=== PATIENT | female | born 1995 | race Hispanic/Latino ===

== ENCOUNTER 2018-08-02 23:01 | Emergency (ER) | payer BC ==
[2018-08-03 00:12] LABS: Urine Blood NEGATIVE (NEG); Urine Glucose NEGATIVE (NEG); Urine Protein NEGATIVE (NEG)
[2018-08-03] MEDS ORDERED: DICYCLOMINE HCL 10 MG CAP ONE (00:41)
[2018-08-03 02:01] LABS: Absolute Lymphocytes (CBC) 1.6 K/uL (0.7-4.9); Absolute Monocytes 0.5 K/uL (0.1-1.3); Absolute Neutrophil 11.6 K/uL (1.8-8.0); Basophils % 0.4 % (0-1.3); Eosinophils % 0.6 % (0-4.4); Hematocrit 42.2 % (36.0-45.0); Lymphocytes % 11.4 % (15.3-44.8); Monocytes % 3.9 % (3.3-12.3); RBC Red Blood Cell Count 4.93 M/uL (3.86-4.86)
[2018-08-03] MEDS ORDERED: MEPERIDINE HCL 25 MG/0.5 ML ONE (02:04)
[2018-08-03] MEDS ORDERED: ONDANSETRON 4 MG/2 ML VIAL ONE (02:04)
[2018-08-03 02:13] LABS: ALT/SGPT 25 U/L (12-78); AST/SGOT 15 U/L (15-37); Albumin 4.2 g/dL (3.4-5.0); Alkaline Phosphatase 81 U/L (45-117); BUN Blood Urea Nitrogen 8 mg/dL (7-18); Bicarbonate 25 mmol/L (21-32); Bilirubin Direct 0.1 mg/dL (0-0.2); Bilirubin Total 0.5 mg/dL (0.2-1.0); Glucose Level 106 mg/dL (74-106); Lipase 111 U/L (73-393); Protein, Total 8.1 g/dL (6.4-8.2); Sodium Level 138 mmol/L (136-145)
--- NOTE | 2018-08-03 04:21 | EDPHYS ---
Physician Documentation [facility] Name: Rommel Soler Age: 22 yrs Sex: Female : 1995 Arrival Date: 08/02/2018 Time: 23:17 Bed 16 Private MD: ED Physician Mata Miranda HPI: 08/03 01:50 This 22 yrs old Female presents to ER via Ambulatory with complaints of jr8 Abdominal Pain. 01:50 The patient presents with abdominal pain that is diffuse. Onset: The symptoms/episode jr8 began/occurred gradually, 2 day(s) ago. The symptoms do not radiate. Associated signs and symptoms: none. The symptoms are described as crampy, dull. Modifying factors: The symptoms are alleviated by nothing, the symptoms are aggravated by food. Severity of pain: At its worst the pain was moderate in the emergency department the pain is unchanged. The patient has not experienced similar symptoms in the past. The patient has been recently seen by a physician:. 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 Went from regular stools to more constipated movements. Straining more. Denies dietary changes or stressors. Stated that for the past two days has had generalized abdominal pain. Saw physician this AM and told her it is stress. Came to ED tonight for continued pain . 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 - Social history:: Smoking status: Patient/guardian denies using tobacco. - Ebola Screening: : Patient negative for fever greater than or equal to 101.5 degrees Fahrenheit, and additional compatible Ebola Virus Disease symptoms Patient denies exposure to infectious person Patient denies travel to an Ebola-affected area in the 21 days before illness onset No symptoms or risks identified at this time. ROS: 08/03 01:50 Eyes: Negative for injury, pain, redness, and discharge, ENT: Negative for injury, jr8 pain, and discharge, Neck: Negative for injury, pain, and swelling, Cardiovascular: Negative for chest pain, palpitations, and edema, Respiratory: Negative for shortness of breath, cough, wheezing, and pleuritic chest pain, Back: Negative for injury and pain, MS/Extremity: Negative for injury and deformity, Skin: Negative for injury, rash, and discoloration, Neuro: Negative for headache, weakness, numbness, tingling, and seizure. Abdomen/GI: Positive for abdominal pain, constipation, Negative for nausea, vomiting, and diarrhea, abdominal distension, anorexia, dysphagia, hematemesis, black/tarry stool, rectal pain, rectal bleeding, bowel incontinence, flatulence. Exam: 01:50 Eyes: Pupils equal round and reactive to light, extra-ocular motions intact. Lids and jr8 lashes normal. Conjunctiva and sclera are non-icteric and not injected. Cornea within normal limits. Periorbital areas with no swelling, redness, or edema. ENT: Nares patent. No nasal discharge, no septal abnormalities noted. Tympanic membranes are normal and external auditory canals are clear. Oropharynx with no redness, swelling, or masses, exudates, or evidence of obstruction, uvula midline. Mucous membranes moist. Neck: Trachea midline, no thyromegaly or masses palpated, and no cervical lymphadenopathy. Supple, full range of motion without nuchal rigidity, or vertebral point tenderness. No Meningismus. Cardiovascular: Regular rate and rhythm with a normal S1 and S2. No gallops, murmurs, or rubs. Normal PMI, no JVD. No pulse deficits. Respiratory: Lungs have equal breath sounds bilaterally, clear to auscultation and percussion. No rales, rhonchi or wheezes noted. No increased work of breathing, no retractions or nasal flaring. Back: No spinal tenderness. No costovertebral tenderness. Full range of motion. Skin: Warm, dry with normal turgor. Normal color with no rashes, no lesions, and no evidence of cellulitis. MS/ Extremity: Pulses equal, no cyanosis. Neurovascular intact. Full, normal range of motion. Neuro: Awake and alert, GCS 15, oriented to person, place, time, and situation. Cranial nerves II-XII grossly intact. Motor strength 5/5 in all extremities. Sensory grossly intact. Cerebellar exam normal. Normal gait. 01:50 Abdomen/GI: Inspection: abdomen appears normal, Bowel sounds: active, all quadrants, Palpation: soft, in all quadrants, mild abdominal tenderness, in the abdomen diffusely, mass, is not appreciated, rebound tenderness, is not appreciated, voluntary guarding, is not appreciated, involuntary guarding, is not appreciated, no appreciated organomegaly, Indicators: McBurney's point is not tender, Merchant's sign is negative, Rovsing's sign is negative, Liver: tenderness, is not appreciated. Vital Signs: 08/02 23:29 BP 152 / 87; Pulse 90; Resp 18; Temp 98.1; Pulse Ox 100% on R/A; Weight 69.85 kg; ed1 Height 5 ft. 6 in. (167.64 cm); Pain 12/04; 08/03 00:30 BP 149 / 93; Pulse 83; Resp 16; Temp 98.1; Pulse Ox 100% on R/A; ak1 01:20 BP 140 / 85; Pulse 71; Resp 16; Temp 98.1; Pulse Ox 100% on R/A; ak1 03:09 Pulse 75; Resp 14; Temp 98.3; Pulse Ox 100% on R/A; ak1 04:14 BP 138 / 76; Pulse 85; Resp 17 S; Pulse Ox 100% on R/A; cc3 08/02 23:29 Body Mass Index 24.86 (69.85 kg, 167.64 cm) ed1 MDM: 00:11 Patient medically screened. [facility] 08/02 23:43 Order name: Urine Dipstick--Ancillary (enter results); Complete Time: 00:31 08/02 23:43 Order name: Urine --Ancillary (enter results); Complete Time: 00:31 08/03 01:06 Order name: Basic Metabolic Panel; Complete Time: 02:14 [facility] 08/03 01:06 Order name: CBC with Diff; Complete Time: 02:14 [facility] 08/03 01:06 Order name: Creatinine for Radiology; Complete Time: 02:14 08/03 01:06 Order name: Hepatic Function; Complete Time: 02:14 [facility] 08/03 01:06 Order name: Lipase; Complete Time: 02:14 [facility] 08/03 01:06 Order name: IV Saline Lock; Complete Time: 01:55 [facility] 08/03 01:26 Order name: Abdomen Single View [facility] 08/03 02:18 Order name: CT Abd/Pelvis - W/Contrast jr8 08/03 01:06 Order name: Labs collected and sent; Complete Time: : jr8 Administered Medications: 00:30 Drug: Bentyl 20 mg Route: PO; ak1 01:10 Follow up: Response: No adverse reaction; Pain is unchanged, physician notified ak1 01:55 Drug: Demerol 25 mg Route: IVP; Site: left antecubital; ak1 02:30 Follow up: Response: No adverse reaction; Pain is decreased ak1 01:55 Drug: Zofran 4 mg Route: IVP; Site: left antecubital; ak1 02:30 Follow up: Response: No adverse reaction ak1 Disposition: 02:34 Co-signature as Attending Physician, Mata Miranda MD I agree with the assessment and [facility] plan of care. Disposition: 08/03/18 04:20 Discharged to Home. Impression: Abdominal tenderness, Constipation, Elevated white blood cell count. - Condition is Stable. - Discharge Instructions: Abdominal Pain, Adult, Constipation, Adult, Constipation, Adult, [id number], Abdominal Pain, Adult, [id number]. - Prescriptions for Bentyl 20 mg Oral Tablet - take 1 tablet by ORAL route every 6 hours As needed; 20 tablet. Colace 100 mg Oral Tablet - take 1 tablet by ORAL route every 12 hours; 14 tablet. - Medication Reconciliation Form, Thank You Letter, Antibiotic Education, Prescription Opioid Use form. - Follow up: Private Physician; When: 2 - 3 days; Reason: Recheck today's complaints, Continuance of care, Re-evaluation by your physician. Follow up: Saeed Smart MD; When: 2 - 3 days; Reason: Recheck today's complaints, Continuance of care, Re-evaluation by your physician. - Problem is new. - Symptoms have improved. Signatures: Dispatcher [employer] Mata Helton MD MD cha Riggs, Erika, RN RN ed1 Baljinder Feliz PA PA jr8 Alivia Mak, RN RN ak1 Corrections: (The following items were deleted from the chart) 01:26 01:08 Abdomen Acute Series+[id number].[id number] ordered. EDPR EDPR 04:21 04:20 08/03/2018 04:20 Discharged to Home. Impression: Abdominal tenderness. Condition sherrie is Stable. Forms are Medication Reconciliation Form, Thank You Letter, Antibiotic Education, Prescription Opioid Use. Follow up: Private Physician; When: 2 - 3 days; Reason: Recheck today's complaints, Continuance of care, Re-evaluation by your physician. Follow up: Saeed Smart; When: 2 - 3 days; Reason: Recheck today's complaints, Continuance of care, Re-evaluation by your physician. Problem is new. Symptoms have improved. sherrie 04:42 04:21 08/03/2018 04:20 Discharged to Home. Impression: Abdominal tenderness; ak1 Constipation; Elevated white blood cell count. Condition is Stable. Forms are Medication Reconciliation Form, Thank You Letter, Antibiotic Education, Prescription Opioid Use. Follow up: Private Physician; When: 2 - 3 days; Reason: Recheck today's complaints, Continuance of care, Re-evaluation by your physician. Follow up: Saeed Smart; When: 2 - 3 days; Reason: Recheck today's complaints, Continuance of care, Re-evaluation by your physician. Problem is new. Symptoms have improved. sherrie
--- NOTE | 2018-08-03 04:21 | ER ---
Nurse's Notes [facility] Name: Rommel Soler Age: 22 yrs Sex: Female : 1995 Arrival Date: 08/02/2018 Time: 23:17 Bed 16 Private MD: Diagnosis: Abdominal tenderness;Constipation;Elevated white blood cell count Presentation: 08/02 23:28 Presenting complaint: Patient states: My stomach hurts and it feels like I need to poop ed1 and I do a little but it still feels like there is stuff in there. Transition of care: patient was not received from another setting of care. Onset of symptoms was July 31, 2018. Risk Assessment: Do you want to hurt yourself or someone else? Patient reports no desire to harm self or others. Initial Sepsis Screen: Does the patient meet any 2 criteria? No. Patient's initial sepsis screen is negative. Does the patient have a suspected source of infection? No. Patient's initial sepsis screen is negative. Care prior to arrival: None. 23:28 Method Of Arrival: Ambulatory ed1 23:28 Acuity: KISHAN 3 ed1 Triage Assessment: 23:29 General: Appears uncomfortable, Behavior is calm, cooperative. Pain: Complains of pain ed1 in right lower quadrant and left lower quadrant Pain currently is 9 out of 10 on a pain scale. GI: Reports nausea. 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 - Social history:: Smoking status: Patient/guardian denies using tobacco. - Ebola Screening: : Patient negative for fever greater than or equal to 101.5 degrees Fahrenheit, and additional compatible Ebola Virus Disease symptoms Patient denies exposure to infectious person Patient denies travel to an Ebola-affected area in the 21 days before illness onset No symptoms or risks identified at this time. Screenin/10 00:32 Abuse screen: Denies threats or abuse. Denies injuries from another. Nutritional ak1 screening: No deficits noted. Tuberculosis screening: No symptoms or risk factors identified. Fall Risk None identified. Assessment: 00:30 General: Appears in no apparent distress. Behavior is calm, cooperative, anxious. Pain: ak1 Complains of pain in abdomen. Neuro: No deficits noted. Cardiovascular: No deficits noted. Respiratory: No deficits noted. GI: Abdomen is flat, non-distended, Bowel sounds present X 4 quads. Abd is soft and non tender X 4 quads. Reports lower abdominal pain, upper abdominal pain, cramping, pt stated she is having increased "gas" pt stated the generalized abd pain started Monday. pt stated she is having BM daily "but more should come out" pt seen at [facility] in the clinic dx stress related abd pain. pt stated they did not give her anything for pain. pt denies N/V/D. : No signs and/or symptoms were reported regarding the genitourinary system. EENT: No signs and/or symptoms were reported regarding the EENT system. Derm: No signs and/or symptoms reported regarding the dermatologic system. Musculoskeletal: No signs and/or symptoms reported regarding the musculoskeletal system. 00:59 Reassessment: Patient appears in no apparent distress at this time. No changes from ak1 previously documented assessment. pt in restroom at this time. pt with steady gait. 02:00 Reassessment: Patient appears in no apparent distress at this time. No changes from ak1 previously documented assessment. Patient and/or family updated on plan of care and expected duration. Pain level reassessed. Patient is alert, oriented x 3, equal unlabored respirations, skin warm/dry/pink. 03:15 Reassessment: Patient appears in no apparent distress at this time. No changes from ak1 previously documented assessment. Patient and/or family updated on plan of care and expected duration. Pain level reassessed. Patient is alert, oriented x 3, equal unlabored respirations, skin warm/dry/pink. 04:41 Reassessment: Patient appears in no apparent distress at this time. No changes from ak1 previously documented assessment. Patient and/or family updated on plan of care and expected duration. Pain level reassessed. Patient is alert, oriented x 3, equal unlabored respirations, skin warm/dry/pink. pt with steady gait at discharge. Patient denies pain at this time. Patient states feeling better. Patient states symptoms have improved. Vital Signs: 08/02 23:29 BP 152 / 87; Pulse 90; Resp 18; Temp 98.1; Pulse Ox 100% on R/A; Weight 69.85 kg; ed1 Height 5 ft. 6 in. (167.64 cm); Pain 12/04; 08/03 00:30 BP 149 / 93; Pulse 83; Resp 16; Temp 98.1; Pulse Ox 100% on R/A; ak1 01:20 BP 140 / 85; Pulse 71; Resp 16; Temp 98.1; Pulse Ox 100% on R/A; ak1 03:09 Pulse 75; Resp 14; Temp 98.3; Pulse Ox 100% on R/A; ak1 04:14 BP 138 / 76; Pulse 85; Resp 17 S; Pulse Ox 100% on R/A; cc3 08/02 23:29 Body Mass Index 24.86 (69.85 kg, 167.64 cm) ed1 ED Course: 08/02 23:17 Patient arrived in ED. es 23:28 Triage completed. ed1 23:29 Arm band placed on right wrist. ed1 08/03 00:11 Baljinder Feliz PA is PHCP. jr8 00:11 Mata Miranda MD is Attending Physician. jr8 00:12 Alivia Mak, TANYA is Primary Nurse. ak1 00:32 Patient has correct armband on for positive identification. Bed in low position. Call ak1 light in reach. Side rails up X 1. Adult w/ patient. Pulse ox on. NIBP on. Door closed. Lights dimmed. Warm blanket given. 00:56 No provider procedures requiring assistance completed. ak1 01:25 X-ray completed. Portable x-ray completed in exam room. Patient tolerated procedure kw well. 01:27 Abdomen Single View In Process Unspecified. EDMS 01:55 Inserted saline lock: 22 gauge in left antecubital area, using aseptic technique. Blood ak1 collected. 01:56 Initial lab(s) drawn, by me, sent to lab. Urine collected: clean catch specimen, clear, ak1 X-ray(s) taken. 03:07 CT Abd/Pelvis - W/Contrast In Process Unspecified. EDMS 04:19 Saeed Smart MD is Referral Physician. sherrie 04:40 IV discontinued, intact, bleeding controlled, No redness/swelling at site. Pressure ak1 dressing applied. Administered Medications: 00:30 Drug: Bentyl 20 mg Route: PO; ak1 01:10 Follow up: Response: No adverse reaction; Pain is unchanged, physician notified ak1 01:55 Drug: Demerol 25 mg Route: IVP; Site: left antecubital; ak1 02:30 Follow up: Response: No adverse reaction; Pain is decreased ak1 01:55 Drug: Zofran 4 mg Route: IVP; Site: left antecubital; ak1 02:30 Follow up: Response: No adverse reaction ak1 Outcome: 04:18 Condition: good ak1 04:20 Discharge ordered by MD. sherrie 04:40 Discharged to home ambulatory, with family. ak1 04:40 Discharge instructions given to patient, family, Instructed on discharge instructions, follow up and referral plans. no drinking with medication, no driving heavy equipment, medication usage, safe sex practices, Demonstrated understanding of instructions, follow-up care, medications, Prescriptions given X 2. 04:42 Patient left the ED. ak1 Signatures: Dispatcher [employer] EDMata Chaudhari MD MD cha Salyer, Edna es Riggs, Erika RN RN ed1 Judy Dobbins Josh, PA PA jr8 Alivia Mak RN RN ak1 Umu Belcher cc3
--- NOTE | 2018-08-03 08:35 | RAD REPORT ---
EXAM DESCRIPTION: RAD - Abdomen Single View - 08/03/2018 1:29 am CLINICAL HISTORY: Abd pain;Constipation Pain COMPARISON: No comparisons FINDINGS: The bowel gas pattern is non-obstructive. No evidence of free air or pneumatosis. No suspi cious calcifications. No significant bony findings. Moderate fecal retention in the colon. IMPRESSION: Moderate fecal retention in the colon.
--- NOTE | 2018-08-03 10:36 | RAD REPORT ---
EXAM DESCRIPTION: CT ABDOMEN PELVIS WITH IV CONTRAST COMPARISON: None CLINICAL HISTORY: Abdominal pain TECHNIQUE: Multiple helical axial images were obtained through the abdomen and pelvis using intraven ous contrast. Coronal and sagittal reformatted images were obtained. All CT scans at this facility use dose modulation, iterative reconstruction, and/or weight-based dosi ng when appropriate to reduce radiation dose to as low as reasonably achievable. FINDINGS: Lung bases: Nonspecific 3 mm nodule in the right lateral costophrenic sulcus is present. Liver: Homogenous attenuation is noted. Gallbladder/biliary: Appears unremarkable Pancreas: Unremarkable. No evidence of ductal enlargement. Spleen: Appears unremarkable. No splenomegaly. Adrenals: Unremarkable. Kidneys and ureters: No evidence of hydronephrosis. Normal enhancement. Bladder: Unremarkable. Pelvic organs: Small left ovarian corpus luteum cyst noted. Bowel: No evidence of bowel obstruction. No bowel wall thickening. Appendix appears unremarkable. Vasculature: Unremarkable. Peritoneum: No free air. There is a trace amount nonspecific free fluid in the pelvis. Lymph nodes: Unremarkable. Soft tissues: Unremarkable. Bones: Unremarkable. IMPRESSION: No evidence for an acute process within the abdomen or pelvis. Electronically signed by: Shawn Antoine MD 08/03/2018 3:18 AM CDT Due to temporary technical issues with the PACS/Fluency reporting system, reports are being signed by the in house radiologist as a courtesy to ensure prompt reporting. The interpreting radiologist is f ully responsible for the content of the report.
== END 2018-08-03 04:42 | disposition home or self-care (01) ==
LOC: ER 23:01
DX: K59.00 Constipation, unspecified (principal); D72.829 Elevated white blood cell count, unspecified
CPT/HCPCS: 36415; 74018; 74177; 80048; 80076; 81003; 81025; 83690; 85025; 96374; 96375; 99284; J2175; J2405; Q9967